=== PATIENT | female | born 1980 | race Caucasian/White ===

== ENCOUNTER 2024-08-18 15:22 | Outpatient (CLI) | payer OTHER, SELFPAY ==
--- NOTE | ~2024-08-18 | XR_ITS ---
Exam: Abdomen 2V HISTORY: diarrhea x 6 months COMPARISON: None. TECHNIQUE: Upright images of the abdomen FINDINGS: Air-fluid levels within the colon, to the right of midline. Intrauterine device is noted. The pelvis is not fully visualized to determine the presence or absence of air within the rectum. IMPRESSION: Air-fluid levels within the colon, a nonspecific but abnormal finding. Cross-sectional imaging (contr ast enhanced CT examination of the abdomen and pelvis) is recommended for further evaluation, along w ith direct visualization. Reviewed, dictated and finalized at location A. VAULT SUPERVISOR IMPRESSION: Air-fluid levels within the colon, a nonspecific but abnormal finding. Cross-se ctional imaging (contrast enhanced CT examination of the abdomen and pelvis) is recommended for further evaluation, along with direct visualization.
--- OUTSIDE RECORDS SUMMARY | 2024-08-20 02:54 | XMS_ITS | Referral Summary ---
Author Organization [facility] Building A Address [address] [place] [address] Care Team Providers Care Radio Talk Show Host Name Role Phone Unknown, Notinfile Primary Care Provider Unavail able Encounters Date Type Department Care Team Description 08/10/2024 1:45 PM WILDLAND FIRE FIGHTER Ancillary Procedure [facility] Imaging at [address] [id number] Acute bronchitis, unspecified organism 07/31/2024 2:15 PM WILDLAND FIRE FIGHTER Office Visit [facility] at [address] [address] Jacquie Blanco, DAVID Acute bronchitis, unspecified organism (Primary Dx) from Last 3 Months Allergies Active Allergy Reactions Criticality Noted Date Comments Adhesive Rash Medium 08/03/2019 Medications levonorgestreL (Mirena) IUD Mirena 20 mcg/24 hours (6 yrs) 52 mg intrauterine device Take by intrauterine route. Active promethazine-DM (PROMETHAZINE-DM) 1.25-3 mg/mL syrup TAKE 5 ML BY MOUTH EVERY 4 HOURS FOR 10 DAYS NEEDED Active ondansetron ODT (ZOFRAN-ODT) 4 mg disintegrating tabletIndications :Nausea Take 1 tablet (4 mg total) by mouth every 6 (six) hours as needed for nausea or vomiting 10 tablet 024 Active methylPREDNISolon e (Medrol, Omid,) 4 mg Dosepack follow package directions 21 tablet 022 2024 Discontinued azithromycin (ZITHROMAX) 250 mg tabletIndications :Acute bronchitis, unspecified organism Take 2 tabs (500 mg) by mouth today, than 1 tab (250 mg) daily for 4 days. 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 Hepatic lesion 06/29/2019 Assessment & Plan (06/29/2019 3:28 PM WILDLAND FIRE FIGHTER): Incidental hepatic lesion noted on CT above measuring 11 x 5mm. Asymptomatic with recent CMP on 06/10/19 reviewed indicating nearly normal liver functions having a slightly elevated ALT at 41. Awaiting for upcoming consultation with General surgery in 2 weeks for further evaluation. 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 Further direction pending follow-up with specialist. Dyspnea and respiratory abnormalities 06/16/2019 Assessment & Plan (06/16/2019 12:01 PM WILDLAND FIRE FIGHTER): Please refer to care plan details listed under fevers under origin. CXR for further evaluation, throughout pneumonia for further need for changes in management. Augmentin prescribed for broad-spectrum coverage, will consider adding on Z-Omid with presence of pneumonia or lack of improvement sx and 48 hours. RTC 1 week and in the interim regarding results of testing. Resolved Problems Problem Noted Date Diagnosed Date Resolved Date Hepatic adenoma 06/29/2019 06/29/2019 Upper respiratory tract infection 06/16/2019 06/16/2019 Fever of unknown origin 06/16/201909/2018 Assessment & Plan (06/16/2019 12:00 PM WILDLAND FIRE FIGHTER): Rapid strep negative, urine dip unremarkable aside from presence of hematuria (currently on mense). CBC, ESR, CRP, CXR for further evaluation. Likely bronchitis vs pneumonia given acute onset of sx. Initiating Augmentin therapy for broad- spectrum coverage, rotation of antipyretics and this. RTC in 1 week and certainly further follow-up pending results of CXR and labs over the next 1-2 days. S/Es of medication discussed, red flags reviewed indicating need to present back in clinic sooner. Flu-like symptoms 06/11/2019 06/16/2019 Assessment & Plan (06/11/2019 10:46 AM WILDLAND FIRE FIGHTER): Rapid flu negative. Given her recent travel to the [facility] possible norovirus that she caught from . Nonspecific complaints, flu-like sx in office would indicate presence of a likely virus. I did encourage Pt to Cnt. To push fluids, protein antipyretics, and call Friday regarding status. Will consider further need for treatment or testing with persistent sx. Posterior cervical lymphadenopathy 05/11/2019 06/09/2019 Assessment & Plan (06/09/2019 8:41 AM WILDLAND FIRE FIGHTER): Much improved w/10 day course of antibiotics. Risk vs benefit of move for with CT scan for further evaluation was discussed Pt and deferred at this time given improvement sx. CBC was also reviewed and WNL as well. Red flags reviewed indicating need to present back into clinic regarding lymphadenopathy any concerning accompanied sx. Assessment & Plan (05/11/2019 10:30 AM CDT): Possibly D/T allergies VS eustachian tube dysfunction, but given chronicity of condition in recommending a 10 day course of antibiotics to treat stay bacterial lymphadenopathy. Also recommending improved treatment for eustachian tube dysfunction with daily antihistamine, Flonase. S/Es of antibiotic discussed and use of probiotics were encouraged. RTC in 2-3 weeks for re-evaluation. Acute dysfunction of right eustachian tube 05/11/2019 05/11/2019 Assessment & Plan (05/11/2019 10:29 AM CDT): Recommending daily antihistamine, Flonase, 3-5 days OTC Sudafed. Also treating for suspected lymphadenopathy D/T secondary bacterial infection. Other fatigue 05/11/2019 06/09/2019 Assessment & Plan (06/09/2019 8:42 AM WILDLAND FIRE FIGHTER): Labs WNL detailed above. No current exercise regimen with poor diet over recent months which could be contributing to her fatigue created strongly encourage her to machine pecan picker an exercise regimen, endorsed healthier lifestyle and changes to further treat Cnt.. Certainly can look into premenopausal causes with persistence. Assessment & Plan (05/11/2019 10:29 AM CDT): Likely multifactorial due the changes in lifestyle habits. She was advised to developed a mild to moderate daily exercise regimen, healthier food choices also help with daily energy. TSH, BMP, CBC ordered for further evaluation as well. Motion sickness 05/11/2019 05/11/2019 Assessment & Plan (05/11/2019 10:30 AM CDT): Recommending scopolamine patch. S/Es of patch and administration thoroughly discussed in office. Immunizations Name Administration Dates Next Due Influenza, Quadrivalent, Ines l Culture-based MDCK, Antibiotic Free, Intramuscular 04/29/2019,04/29/2019 Influenza, Quadrivalent, Spl it, Preservative Free, Intramuscular 04/28/2018 Influenza, Trivalent, IM (MDV) 05/03/2017,2014 Influenza, Trivalent, Preser vative Free, Intramuscular 05/02/2015,05/13/2014 Influenza, Unspecified 08/10/2021(Deferr ed: Patient Refused),04/27/2021(Deferred: Patient Refused),09/20/2020(Deferred: Patient Refused) Moderna SARS-CoV-2 Monovalen t Vaccination (12+ YRS) 10/17/2020 Social History Tobacco Use Types Packs/Day Years Used Date Smoking Tobacco: Former Smokeless Tobacco: Never Tobacco Cessation:Counseling Given: Not Answered Alcohol Use Standard Drinks/Week Comments Yes 0 (1 standard drink = 0.6 oz pur e alcohol) PHQ-2 Answer Date Recorded PHQ-2 Total Score (If total score is 3 or more points, staff should administer the PHQ-9) 0 08/10/2021 Comments No Sex and Gender Information Value Date Recorded Sex Assigned at Not on file Legal Sex Female 12:21 PM WILDLAND FIRE FIGHTER Gender Identity Not on file Sexual Orientation Not on file Last Filed Vital Signs Vital Sign Reading Time Taken Comments Blood Pressure 101/55 07/31/2024 2:05 PM WILDLAND FIRE FIGHTER Pulse 84 07/31/2024 2:05 PM WILDLAND FIRE FIGHTER Temperature 36.9 ??C (98.4 ??F) 07/31/2024 2:05 PM CS T Respiratory Rate 20 07/31/2024 2:05 PM WILDLAND FIRE FIGHTER Oxygen Saturation 97% 07/31/2024 2:05 PM WILDLAND FIRE FIGHTER Inhaled Oxygen Concentration - - Weight 87 kg (191 lb 12.8 oz) 07/31/2024 2:05 PM WILDLAND FIRE FIGHTER Height 160 cm (5' 3 ) 07/31/2024 2:05 PM WILDLAND FIRE FIGHTER Body Mass Index 33.98 07/31/2024 2:05 PM WILDLAND FIRE FIGHTER Plan of Treatment Not on file Procedures Procedure Name Priority Date/Time Associated Diagnosis Comments XR CHEST PA LATERAL 2 VIEWS Schedule CORTEZ, Read CORTEZ (Appt Today, Awaiting Results) 08/10/2024 1:43 PM WILDLAND FIRE FIGHTER Acute bronchitis, unspecified organism from Last 3 Months Results * XR Chest Pa Lateral 2 Views (08/10/2024 1:43 PM WILDLAND FIRE FIGHTER) Anatomical Region Laterality Modality Body, Chest N/A Digital Radiogra phy 08/10/2024 2:18 PM WILDLAND FIRE FIGHTER Narrative 08/10/2024 2:19 PM WILDLAND FIRE FIGHTER EXAM DESCRIPTION: XR CHEST PA LATERAL 2 VIEWS REASON FOR STUDY: cough ?? Pt complains of cough x 6 weeks. No chest surgery. No asthma,copd,heart disease,cancer. Former smoker socially as a teenager. ? TECHNIQUE: There are 2 ??radiographic view(s) of the chest. COMPARISON: Prior exam 08/18/2019 FINDINGS: LUNGS: ??Pulmonary vascularity appears normal. ??No confluent infiltrate or effusion. ??Costophrenic angles are sharp. ?? HEART/MEDIASTINUM: ??Cardiac silhouette normal in size. Mediastinal and hilar contours appear normal. LINES/TUBES: ??None. BONES: ??Mild spondylosis thoracic spine. IMPRESSION: No acute cardiopulmonary abnormality. THIS IS AN ELECTRONICALLY VERIFIED FINAL REPORT 08/10/2024 2:19 PM - Electronically signed by ??Lucien BANKS D: ??08/10/2024 2:19 PM T: Report ID: [id number] Reading Location: ??[id number] Procedure Note Lucien Alonzo MD - 08/10/2024 EXAM DESCRIPTION: XR CHEST PA LATERAL 2 VIEWS REASON FOR STUDY: cough Pt complains of cough x 6 weeks. No chest surgery. No asthma,copd,heart disease,cancer. Former smoker socially as a teenager. TECHNIQUE: There are 2 radiographic view(s) of the chest. COMPARISON: Prior exam 08/18/2019 FINDINGS: LUNGS: Pulmonary vascularity appears normal. No confluent infiltrate or effusion. Costophrenic angles are sharp. HEART/MEDIASTINUM: Cardiac silhouette normal in size. Mediastinal andhilar contours appear normal. LINES/TUBES: None. BONES: Mild spondylosis thoracic spine. IMPRESSION: No acute cardiopulmonary abnormality. THIS IS AN ELECTRONICALLY VERIFIED FINAL REPORT 08/10/2024 2:19 PM - Electronically signed by Lucien BANKS T: Report ID: [id number] Reading Location: [id number] Jacquie Blanco NP IMG XR PROCEDURES Final Re sult from Last 3 Months Insurance [facility] CHOICE PLUS CHOICE PLUS [place] [id number] Care Teams Radio Talk Show Host Relationship Specialty Start Date End Date Unknown, Notinfile PCP - General 07/31/24
--- OUTSIDE RECORDS SUMMARY | 2024-08-20 02:54 | XMS_ITS | Clinical Summary ---
Author Organization [facility] Office Building A Address [address] [place] [address] Care Team Providers Care Scale Tank Operator Name Role Phone Unknown, Notinfile Primary Care Provider Unavail able Allergies Active Allergy Reactions Criticality Noted Date [...] 08/03/19 Assessment & Plan (08/03/2019 10:41 AM SAUSAGE GRINDER): Will order [address], if imaging is still uncertain, will send to GI for further work up. Hepatic lesion 06/29/2019 Assessment & Plan (06/29/2019 3:28 PM SAUSAGE GRINDER): Incidental hepatic lesion noted on CT above [...] 06/16/2019 Assessment & Plan (06/16/2019 12:01 PM SAUSAGE GRINDER): Please refer to care plan details listed [...] 06/16/201909/2018 Assessment & Plan (06/16/2019 12:00 PM SAUSAGE GRINDER): Rapid strep negative, urine dip unremarkable aside [...] 06/16/2019 Assessment & Plan (06/11/2019 10:46 AM SAUSAGE GRINDER): Rapid flu negative. Given her recent travel to the [place] possible norovirus that she caught from . Nonspecific complaints, flu-like sx in office would indicate presence of a likely virus. I did encourage Pt to Cnt. To push fluids, protein antipyretics, and call Friday regarding status. Will consider further need for treatment or testing with persistent sx. Posterior cervical lymphadenopathy 05/11/2019 06/09/2019 Assessment & Plan (06/09/2019 8:41 AM SAUSAGE GRINDER): Much improved w/10 day course of antibiotics. [...] 06/09/2019 Assessment & Plan (06/09/2019 8:42 AM SAUSAGE GRINDER): Labs WNL detailed above. No current exercise regimen with poor diet over recent months which could be contributing to her fatigue created strongly encourage her to chicken picker an exercise regimen, endorsed healthier lifestyle [...] patch and administration thoroughly discussed in office. Encounters Date Type Department Care Team Description 08/10/2024 1:45 PM SAUSAGE GRINDER Ancillary Procedure [facility] Imaging at [address] [id number] Acute bronchitis, unspecified organism 07/31/2024 2:15 PM SAUSAGE GRINDER Office Visit [facility] at [address] [address] Jacquie Blanco, STAIN APPLICATOR Acute bronchitis, unspecified organism (Primary Dx) from Last 3 Months Immunizations Name Administration Dates Next Due Influenza, Quadrivalent, Ines l Culture-based MDCK, Antibiotic Free, Intramuscular 04/29/2019,04/29/2019 Influenza, Quadrivalent, Spl it, Preservative Free, Intramuscular 04/28/2018 Influenza, Trivalent, IM (MDV) 05/03/2017,2014 Influenza, Trivalent, Preser vative Free, Intramuscular 05/02/2015,05/13/2014 Influenza, Unspecified 08/10/2021(Deferr ed: Patient Refused),04/27/2021(Deferred: Patient Refused),09/20/2020(Deferred: Patient Refused) Moderna SARS-CoV-2 Monovalen t Vaccination (12+ YRS) 10/17/2020 Surgical History Surgery Date Site/Laterality Comments SECTION section Medical History Medical History Date Comments Hx Other Medical 01-LIVESTOCK SPECULATOR Family History Medical History Relation Name Comments Diabetes Father Diabetes mellit us; Diabetes Mother Diabetes mellit us; Relation Name Status Comments Father Mother Social History Tobacco Use Types Packs/Day Years [...] on file Legal Sex Female 12:21 PM SAUSAGE GRINDER Gender Identity Not on file Sexual Orientation Not on file Obstetrics History Last Filed Vital Signs Vital Sign Reading Time Taken Comments Blood Pressure 101/55 07/31/2024 2:05 PM SAUSAGE GRINDER Pulse 84 07/31/2024 2:05 PM SAUSAGE GRINDER Temperature 36.9 ??C (98.4 ??F) 07/31/2024 2:05 PM CS T Respiratory Rate 20 07/31/2024 2:05 PM SAUSAGE GRINDER Oxygen Saturation 97% 07/31/2024 2:05 PM SAUSAGE GRINDER Inhaled Oxygen Concentration - - Weight 87 kg (191 lb 12.8 oz) 07/31/2024 2:05 PM SAUSAGE GRINDER Height 160 cm (5' 3 ) 07/31/2024 2:05 PM SAUSAGE GRINDER Body Mass Index 33.98 07/31/2024 2:05 PM SAUSAGE GRINDER Plan of Treatment Health Maintenance Due Date Last Done Comments Breast Cancer Screening-Mammogram 1982 Cervical Cancer Screening 1982 Hepatitis C Screening 1982 Pneumococcal vaccine <65 (1 of 2 - PCV) 1988 DTaP/Tdap/Td Vaccine (1 - Tdap) 1993 Varicella Vaccines (1 of 2 - 13+ 2-dose series) 1995 Hepatitis B Screening 2000 Regular Well Visit/Exam 18-64 2000 Depression Screening 08/10/2022 08/10/2021, 09/20/2020, 06/29/2019, Additional history exists Covid-19 Vaccine (2023- season) 2024 11/16/2020, 10/17/2020 Influenza Vaccine (#1) 2024 9, 04/29/2019, 04/28/2018, Additional history exists HPV Vaccines Aged Out No longer eligi ble based on patient's age to complete this topic Procedures Procedure Name Priority Date/Time Associated Diagnosis Comments XR CHEST PA LATERAL 2 VIEWS Schedule CORTEZ, Read CORTEZ (Appt Today, Awaiting Results) 08/10/2024 1:43 PM SAUSAGE GRINDER Acute bronchitis, unspecified organism from Last 3 Months Results * XR Chest Pa Lateral 2 Views (08/10/2024 1:43 PM SAUSAGE GRINDER) Anatomical Region Laterality Modality Body, Chest N/A Digital Radiogra phy 08/10/2024 2:18 PM SAUSAGE GRINDER Narrative 08/10/2024 2:19 PM SAUSAGE GRINDER EXAM DESCRIPTION: XR CHEST PA LATERAL 2 [...] D: ??08/10/2024 2:19 PM T: Report ID: [id number] Reading Location: ??[id number] Procedure Note Lucien Alonzo MD - 08/10/2024 [...] 2:19 PM - Electronically signed by Lucien Alonzo M.D. MJ T: Report ID: [id number] Reading Location: [place] [id number] Jacquie Blanco NP IMG XR PROCEDURES Final Re sult from Last 3 Months Insurance CHOICE PLUS Care Teams Scale Tank Operator Relationship Specialty Start Date End Date Unknown, Notinfile PCP - General 07/31/24
== END 2024-08-18 15:23 | disposition home or self-care (01) ==
LOC: ANHBWCIMG 15:24
PROVIDERS: PCP Nurse Practitioner Adult Health; Visit Provider Nurse Practitioner Adult Health
DX: K52.9 Noninfective gastroenteritis and colitis, unspecified (principal)
CPT/HCPCS: 74018

== ENCOUNTER 2024-09-13 09:17 | Outpatient (CLI) | payer OTHER, SELFPAY ==
--- OUTSIDE RECORDS SUMMARY | 2024-09-13 12:00 | XMS_ITS | Data Portability ---
Author Organization [facility] [email or web address] [facility], Main Office Address [address] [place] [address] Assessment No assessment recorded. Plan of Treatment Reminders Order Date Submit Date Provider Last Modified By Organization Details Last Modified Time Details Appointments None recorded. Lab rapid strep group A, throat 2023 024 [facility] [address], [place], [address], 4 15:16:45 streptococc us group A, culture, throat 2023 024 [email or web address] 2 [facility] [place] (Lab), [address] [place], [address], 4 08:06:34 Referral None recorded. Procedures None recorded. Surgeries None recorded. Imaging None recorded. Medication Orders azithromyci n 500 mg tablet 2023 024 [facility]/Pharm[facility] #[id number], [address] [place], [address], 4 12:38:05 ciprofloxac in 500 mg tablet 2023 024 [id number], [address], [place], [id number], 4 12:10:22 promethazin e-DM 6.25 mg-15 mg/5 mL oral syrup 2023 024 [id number], [address] , [place], [place], [id number], 4 12:10:26 Patient TargetsNo targets recorded. Patient Instructions Encounter Date Encounter Id Patient Instructions Last Modified By Organization Details Last Modified Time 03/24/2024 [id number] take imodium aafter every loose claire , if not better, get in to ED., avoid dairy , cheese . [email or web address] Not available 03/29/2024 15:33:56 Reason for Referral None Reported. Results Created Date Observation Date Name Description Value Unit Range Abnormal Flag Note LastModifiedBy Organization Detail LastModifiedTime 08/04/19 24 08/04/2023 rapid strep group A, throa t STREP A negati ve Not Available [address], [place], [address], 08/04/2023 13:28:20 Result Notes None recorded. Problems Name Problem SNOMED Code Status Onset Date Resolution Date Notes Provider Name and Address Organization Details Recorded Time Menorrhagi a 329056050 Active Not Available [facility] 3 05:55:59 Pain of breast 43076173 Completed Not Available [facility] 3 05:55:59 Solar erythema 137542945 Active 2022 Cal Acevedo MD [address], [employer], [place], [address] , [employer] 3 11:31:20 Sinusitis 16720468 Active 2022 JAGRUTI Smith [address], [place], [address] , [employer] 3 10:28:10 Traveler's diarrhea 76981811 Active 2023 JAGRUTI Smith [address] [employer], [place], [address] , [employer] 4 12:37:22 Problem Notes None recorded. Procedures Surgical History Date Name Laterality Status Provider Name and Address Organization Details Recorded Time loop electrosurgical excision procedure of cervix completed Not Available [facility] 09/25/2022 05:52:24 section completed Not Available [facility] 09/25/2022 05:52:24 Imaging Results None recorded. Procedure Notes None recorded. Medical Equipment None Reported. Allergies No known drug allergies Medications Name Sig Start Date Stop Date Status Note LastModified by Organization Details LastModified Time amoxicillin 500 mg capsule 03/11 completed Not Available Not Available Not Available Mirena 21 mcg/24 hr (up to 8 years) 52 mg intrauterin e device Take by intrauter ine route. 2019 active Not Available Not Available Not Avai lable promethazin e-DM 6.25 mg-15 mg/5 mL oral syrup TAKE 5 ML BY MOUTH EVERY 4 HOURS FOR 10 DAYS NEEDED 03/24 completed Not Available Not Available Not Available azithromyci n 250 mg tablet active Not Available Not Available Not Available phentermine 37.5 mg tablet Take 1 tablet every day by oral route. 08/04 completed Not Available Not Available Not Available ciprofloxac in 500 mg tablet TAKE 1 TABLET BY MOUTH EVERY 12 HOURS FOR 10 DAYS 03/24 completed Not Available Not Available Not Available hydrocortis one 2.5 % topical cream with perineal applicator APPLY A THIN LAYER TO THE AFFECTED AREA(S) BY TOPICAL ROUTE 2-4 TIMESDAIL Y for 7-10 days as needed 07/01 completed Not Available Not Available Not Available ciprofloxac in 0.3 % eye drops INSTILL TWO GTS IN AFFECTED EYES QID active Not Available Not Available No t Available cephalexin 500 mg capsule 05/14 completed Not Available Not Available Not Available oseltamivir 75 mg capsule 03/11 completed Not Available Not Available Not Available tobramycin 0.3 % eye drops active Not Available Not Available Not Available cefuroxime axetil 500 mg tablet 07/27 completed Not Available Not Available Not Available scopolamine 1 mg over 3 days transdermal patch 07/27 completed Not Available Not Available Not Available methylpredn isolone 4 mg tablets in a dose pack FOLLOW PACKAGE DIRECTION S 08/04 completed Not Available Not Available Not Available Necon 0.5/35 (28) 0.5 mg-35 mcg tablet Take 1 tablet every day by oral route. 05/14 completed Not Available Not Available Not Available fluticasone propionate 50 mcg/actuati on nasal spray,suspe nsion 07/01 completed Not Available Not Available Not Available amoxicillin 875 mg-potassiu m clavulanate 125 mg tablet 07/27 completed Not Available Not Available Not Available Ventolin HFA 90 mcg/actuati on aerosol inhaler 07/01 completed Not Available Not Available Not Available azithromyci n 500 mg tablet TAKE 1 TABLET BY MOUTH EVERY DAY FOR 5 DAYS active Not Available Not Available No t Available Nortrel (28) 0.5 mg/0.75 mg/1 mg-35 mcg tablet TAKE 1 TABLET BY MOUTH EVERY DAY 07/27 completed Not Available Not Available Not Available Se- 19 (with docusate) 29 mg iron-1 mg-25 mg tablet Take 1 tablet every day by oral route. active Not Available Not Available No t Available Estarylla 0.25 mg-35 mcg tablet Take 3 pills daily for 3 days, then 2 pills daily for 2 days, then 1 pill thereafte r to complete 2 packs (skip the placebo pills) 08/09 completed Not Available Not Available Not Available Virtussin AC 10 mg-100 mg/5 mL oral liquid 03/11 completed Not Available Not Available Not Available Fluvirin 9650-7281(P F) 45 mcg (15 mcg x3)/0.5 mL intramuscul ar syringe INJECT 0.5 ML INTRAMUSC ULARLY DIRECTED. active Not Available Not Available No t Available Fluvirin 1438-5106 (PF) 45 mcg (15 mcg x 3)/0.5 mL IM syringe ADM 0.5ML IM UTD 07/27 completed Not Available Not Available Not Available Fluvirin 6528-7275 45 mcg (15 mcg x 3)/0.5 mL intramuscul ar suspension ADM 0.5ML IM UTD 07/27 completed Not Available Not Available Not Available Afluria Quad (PF) 60 mcg (15 mcg x 4)/0.5 mL IM syringe ADM 0.5ML IM UTD 07/27 completed Not Available Not Available Not Available Flucelvax Quad 60 mcg (15 mcg x 4)/0.5 mL intramuscul ar susp ADM 0.5ML IM UTD active Not Available Not Available No t Available Vitals Date Recorded Body mass index (BMI) Body mass index (BMI) Body height Body height Oxygen saturation Oxygen saturation in Arterial blood by Pulse oximetry Oxygen saturation Oxygen saturation in Arterial blood by Pulse oximetry Heart rate Heart rate Body temperature Body temperature Body weight Body weight Systolic blood pressure Diastolic blood pressure Systolic blood pressure Diastolic blood pressure Provider Name and Address Organization Details Last Updated DateTime 3 30.6 kg/m2 29.8 kg/m2 165.1 cm 165.1 cm 98 % 98 % 97 % 97 % 68 /min 90 /min 98.1 [degF] 97.2 [degF] 89010 g 03970.0 3 g 104 mm[Hg] 68 mm[Hg] 122 mm[Hg] 78 mm[Hg] Not Available [facility] 3 05:54:29 Date Recorded Body weight Body temperature Heart rate Oxygen saturation Oxygen saturation in Arterial blood by Pulse oximetry Systolic blood pressure Diastolic blood pressure Provider Name and Address Organization Details Last Updated DateTime 4 26341.0 7 g 98.1 [degF] 105 /min 95 % 95 % 122 mm[Hg] 86 mm[Hg] Emily Morales MA [employer] 4 12:47:16 Date Recorded Body weight Body mass index (BMI) Body height Body temperature Respiratory rate Heart rate Oxygen saturation Oxygen saturation in Arterial blood by Pulse oximetry Systolic blood pressure Diastolic blood pressure Provider Name and Address Organization Details Last Updated DateTime 4 95255.9 2 g 33.3 kg/m2 162.56 cm 98.3 [degF] 16 /min 60 /min 95 % 95 % 120 mm[Hg] 80 mm[Hg] Krupa Varghese RN [facility] [employer] 4 12:12:37 Social History Question Answer Notes LastModified by Organizat ion Details LastModified Time Tobacco Smoking Status Former Smoker 1ppw Not Available [facility] 09/25/2022 05:52:12 How Many Years Have You Smoked Tobacco? 2 [id number] Information not available 09/25/2022 Sex: Unknown Functional Status None recorded. Mental Status None recorded. Family History Relationship Description Onset Age of this Age Resolved Age Notes LastModified by Organization Details LastModified Time Father Lane tanner [email or web address] [id number] Not available 09/25/2022 05:52:25 Medical History Condition Response BLINDNESS N RHEUMATIC FEVER N KIDNEY STONES N BLADDER PROBLEMS N MRSA N OTHER # 1 N POLIO N LUNG DISEASE/DISORDER N HISTORY OF DRUG ABUSE N COPD N RADIATION / CHEMOTHERAPY N Other # 2 N BLOOD DISEASES N SURGERY N EAR OR HEARING PROBLEMS N MUMPS N SHINGLES N BOWEL PROBLEMS N FEMALE PROBLEMS / INFECTIONS N DEPRESSION (INCLUDING POST ) N STROKE/TIA N THYROID DISEASE N ULCERS N BENIGN PROSTATIC HYPERPLASIA N MEASLES N CERVICALGIA N TB SKIN TEST N HYPOTENSION N MYOCARDIAL INFARCTION N OBESITY N PARAPELGIA N GERD/NAUSEA N ANEURYSM N URINARY/BLADDER/KIDNEY PROBLEMS N CORONARY ARTERY DISEASE (CAD) N MENIERE'S DISEASE N ADDICTION CONCERNS N ENDOMETRIOSIS N USE OF BLOOD THINNERS N SKIN PROBLEMS N EMPHYSEMA N GASTROINTESTINAL DISORDER N MUSCLE,JOINT OR BONE PROBLEMS N GASTROINTESTINAL BLEEDING N BLOOD CLOTS N ASTHMA N CATARACTS N ERECTILE DYSFUNCTION N GI PROBLEMS N CHF N Low Testosterone N NEUROPATHY N INFERTILITY N AIDS/HIV N FRACTURES N CHEMOTHERAPY / RADIATION N VISION/EYE PROBLEMS N LIVER DISEASE N MALE HYPOGONADISM N HYPERTENSION N TOURETTE'S N ANXIETY DISORDER N BLOOD TRANSFUSION N ANEMIA/BLOOD DISORDER N CHRONIC EAR INFECTIONS N BRONCHITIS Y TUBERCULOSIS N GLAUCOMA N FOOT PROBLEM N DIVERTICULITIS N CHICKENPOX N SLEEP APNEA N ALLERGIES/HAYFEVER N INFECTIOUS DISEASE N HEART ARRHYTHMIA N PROSTATE N INSOMNIA N HIGH CHOLESTEROL / HYPERLIPIDEMIA N HYPERTHYROIDISM N EYE PROBLEMS N EATING DISORDER N EDEMA N CHRONIC PAIN SYNDROME N CONSTIPATION N CAROTID BLOCKAGE N BACK / NECK PROBLEMS N HAVE YOU BEEN HOSPITALIZED OR SEEN IN [facility] IN THE PAST YEAR ? N ATHEROSCLEROSIS N BREAST PROBLEMS N DIALYSIS N ECZEMA N FIBROMYALGIA N OSTEOPOROSIS N ARTHRITIS N NO SIGNIFICANT PAST MEDICAL HISTORY N APPENDICITIS N DIABETES, TYPE N BAD TEETH N HEARTBURN / REFLUX N ADD/ADHD N AUTISM SPECTRUM DISORDER (ASD) N HEPATITIS / LIVER DISEASE N PULMONARY DISEASE N GOUT N SLEEP DISORDER N ALZHEIMER'S DISEASE N PAIN N HERPES N DEMENTIA N HEADACHES/MIGRAINES N SEIZURES/EPILEPSY N VASCULAR DISEASE N PACEMAKER N DIZZINESS N HEART DISEASE/HEART PROBLEMS N KIDNEY DISEASE N DEVELOPMENTAL OR BEHAVIORAL DISORDERS N MULTIPLE SCLEROSIS N SCARLET FEVER N MENTAL DISORDER/ILLNESS N CARDIAC ARRHYTHMIA N CANCER: SPECIFY N PNEUMONIA N ATRIAL FIBRILLATION N Gall Stones N PULMONARY EMBOLISM N AUTOIMMUNE DISEASE N Gynecological History Statement/Question Response Abnormal Pap N Flow Moderate Date of LMP 06/25/2022 STIs/STDs N Date of Last Pap 01/25/2022 Duration of Flow (days) 4 Age at Menarche 15 How many live births 3 Frequency of Cycle (Q days) 30 Sexually Active? Y Menses Monthly Y Obstetrics History GPAL:G 3 P 3 0 0 3 Type Value Full Term 3 Living 3 Total 3 Past Encounters Encounter ID Performer Location Encounter Start Date Encounter Closed Date Diagnosis/Indication Diagnosis SNOMED-CT Code Diagnosis ICD10 Code Diagnosis Note [id number] [facility] [place] [address] [place] [address] [place] [address] 07/01/2022 00:00:00 07/01/2022 21:11:43 [id number] [facility] [place] [address] [place] [address] [place] [address] 07/30/2022 00:00:00 07/30/2022 19:51:55 [id number] JAGRUTI Smith [facility] [place] [address] [place] [address] [place] [address] 08/04/2023 12:35:44 08/04/2023 13:56:37 Sinusitis 89511149 J32.9 [id number] JAGRUTI Smith [facility] [place] [facility] [address] [place] [address] [place] [address] 03/24/2024 12:01:59 03/24/2024 12:45:52 Traveler's diarrhea [id number] A04.1 Health Concerns Section Related Observation LastModified by Organization Detai ls LastModified Time None Recorded Concern Status LastModified by Organization Details LastModified Time None Recorded Advance Directives Directive None Recorded Payers Encounter Date Sequence Insurance Name Policy Number Policy Diego Covered Member ID Diego Member ID Guarantor Name 08/04/2023 1 [facility] [id number] Carol A [place] [id number] Carol Lombardi [place] 03/24/2024 1 [facility] [id number] Carol A Adonis [id number] Carol Lombardi [place] Notes Date Note Type Note Provider Name and Address Organization Details Recorded Time 08/04/2023 text/html sinus pressure , drainage , no fever, sore throat though JAGRUTI Smith [address], [place], [address], [facility] [employer] [facility] [employer] [facility] 08/09/2023 08:33:49 03/24/2024 text/html loose stools , urgency , same , no fevers JAGRUTI Smith [address], [place], [address], [email or web address] [facility] [employer] [facility] 03/29/2024 15:36:25 OBGyn Episode No OBEpisode recorded.
--- OUTSIDE RECORDS SUMMARY | 2024-09-13 12:00 | XMS_ITS | Clinical Summary ---
Author Organization [facility] Medical Office Building A Address [address] [place] [address] Care Team Providers Care Diving Board Assembler Name Role Phone Unknown, Notinfile Primary Care [...] Active ondansetron ODT (ZOFRAN-ODT) 4 mg disintegrating tabletIndications: Nausea Take 1 tablet (4 mg total) by mouth every 6 (six) hours as needed for nausea or vomiting 10 tablet 02/11/20 24 Active Active Problems Problem Noted Date Diagnosed Date Menorrhagia 02/11/2024 Pain of breast 02/11/2024 Sinusitis 07/01/2023 Sunburn 02/26/2023 Neoplasm of uncertain behavior of liver 08/03/19 20 Assessment & Plan (08/03/2019 10:41 AM PIPE STEM SAWYER): Will order [address], if imaging is still uncertain, will send to GI for further work up. Hepatic lesion 06/29/2019 Assessment & Plan (06/29/2019 3:28 PM PIPE STEM SAWYER): Incidental hepatic lesion noted on CT above [...] 06/16/2019 Assessment & Plan (06/16/2019 12:01 PM PIPE STEM SAWYER): Please refer to care plan details listed [...] infection 06/16/2019 06/16/2019 Fever of unknown origin 06/16/2019 12/0 09/2018 Assessment & Plan (06/16/2019 12:00 PM PIPE STEM SAWYER): Rapid strep negative, urine dip unremarkable aside [...] 06/16/2019 Assessment & Plan (06/11/2019 10:46 AM PIPE STEM SAWYER): Rapid flu negative. Given her recent travel to the [facility] possible norovirus that she caught from . Nonspecific complaints, flu-like sx in office would indicate presence of a likely virus. I did encourage Pt to Cnt. To push fluids, protein antipyretics, and call Friday regarding status. Will consider further need for treatment or testing with persistent sx. Posterior cervical lymphadenopathy 05/11/2019 06/09/2019 Assessment & Plan (06/09/2019 8:41 AM PIPE STEM SAWYER): Much improved w/10 day course of antibiotics. [...] 06/09/2019 Assessment & Plan (06/09/2019 8:42 AM PIPE STEM SAWYER): Labs WNL detailed above. 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, endorsed healthier lifestyle [...] Department Care Team Description 08/10/2024 1:45 PM PIPE STEM SAWYER Ancillary Procedure [facility] Imaging at [address] [address] Acute bronchitis, unspecified organism 07/31/2024 2:15 PM PIPE STEM SAWYER Office Visit [facility] Convenient Care at [address] [address] Jacquie Blanco, CUSTOMER SUPPORT AGENT Acute bronchitis, unspecified organism (Primary Dx) from Last 3 Months Immunizations Immunization Administration Dates Next Due Influenza, Quadrivalent, Ines [...] Medical History Date Comments Hx 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 Family History Medical History Relation Name Comments [...] on file Legal Sex Female 12:21 PM PIPE STEM SAWYER Gender Identity Not on file Sexual Orientation Not on file Obstetrics History Last Filed Vital Signs Vital Sign Reading Time Taken Comments Blood Pressure 101/55 07/31/2024 2:05 PM PIPE STEM SAWYER Pulse 84 07/31/2024 2:05 PM PIPE STEM SAWYER Temperature 36.9 C (98.4 F) 07/31/2024 2:05 PM PIPE STEM SAWYER Respiratory Rate 20 07/31/2024 2:05 PM PIPE STEM SAWYER Oxygen Saturation 97% 07/31/2024 2:05 PM PIPE STEM SAWYER Inhaled Oxygen Concentration - - Weight 87 kg (191 lb 12.8 oz) 07/31/2024 2:05 PM PIPE STEM SAWYER Height 160 cm (5' 3 ) 07/31/2024 2:05 PM PIPE STEM SAWYER Body Mass Index 33.98 07/31/2024 2:05 PM PIPE STEM SAWYER Plan of Treatment Health Maintenance Due Date [...] 09/20/2020, 06/29/2019, Additional history exists Covid-19 Vaccine ( season) 2024 11/16/2020, 10/17/2020 Influenza Vaccine (#1) 2024 9, 04/29/2019, 04/28/2018, Additional history exists HPV Vaccines Aged Out No longer eligi ble based on patient's age to complete this topic Procedures Procedure Name Priority Date/Time Associated Diagnosis Comments XR CHEST PA LATERAL 2 VIEWS Schedule CORTEZ, Read CORTEZ (Appt Today, Awaiting Results) 08/10/2024 1:43 PM PIPE STEM SAWYER Acute bronchitis, unspecified organism from Last 3 Months Results * XR Chest Pa Lateral 2 Views (08/10/2024 1:43 PM PIPE STEM SAWYER) Anatomical Region Laterality Modality Body, Chest N/A Digital Radiogra phy 08/10/2024 2:18 PM PIPE STEM SAWYER Narrative 08/10/2024 2:19 PM PIPE STEM SAWYER EXAM DESCRIPTION: XR CHEST PA LATERAL 2 [...] HEART/MEDIASTINUM: Cardiac silhouette normal in size. Mediastinal and hilar contours appear normal. LINES/TUBES: None. BONES: Mild spondylosis thoracic spine. IMPRESSION: No acute cardiopulmonary abnormality. THIS IS AN ELECTRONICALLY VERIFIED FINAL REPORT 08/10/2024 2:19 PM - Electronically signed by Lucien BANKS T: Report ID: [id number] Reading Location: [id number] Procedure Note Lucien Alonzo MD - 08/10/2024 [...] signed by Lucien BANKS T: Report ID: [id number] Reading Location: [place] [address] Jacquie Blanco NP IMG XR PROCEDURES Final Re sult from Last 3 Months Insurance [facility] HMO/PPO Address: [address] [address] [facility] HMO/PPO Address: [address] [id number] [place] [address] Care Teams Diving Board Assembler Relationship Specialty Start Date End Date Unknown, Notinfile PCP - General 07/31/24
--- OUTSIDE RECORDS SUMMARY | 2024-09-13 12:00 | XMS_ITS | Referral Summary ---
Author Organization [facility] Medical Office Building A Address [address] [place] [address] Care Team Providers Care Senior Vice President Name Role Phone Unknown, Notinfile Primary Care Provider Unavail able Encounters Date Type Department Care Team Description 08/10/2024 1:45 PM MUCK MINER Ancillary Procedure [facility] Imaging at [address] [address] Acute bronchitis, unspecified organism 07/31/2024 2:15 PM MUCK MINER Office Visit [facility] Convenient Care at [address] [address] Jacquie Blanco, DAVID Acute bronchitis, [...] 08/03/19 Assessment & Plan (08/03/2019 10:41 AM MUCK MINER): Will order [address], if imaging is still uncertain, will send to GI for further work up. Hepatic lesion 06/29/2019 Assessment & Plan (06/29/2019 3:28 PM MUCK MINER): Incidental hepatic lesion noted on CT above [...] 06/16/2019 Assessment & Plan (06/16/2019 12:01 PM MUCK MINER): Please refer to care plan details listed [...] 06/16/2019 06/16/2019 Fever of unknown origin 06/16/2019 1209/2018 Assessment & Plan (06/16/2019 12:00 PM MUCK MINER): Rapid strep negative, urine dip unremarkable aside [...] 06/16/2019 Assessment & Plan (06/11/2019 10:46 AM MUCK MINER): Rapid flu negative. Given her recent travel [...] 06/09/2019 Assessment & Plan (06/09/2019 8:41 AM MUCK MINER): Much improved w/10 day course of antibiotics. [...] 06/09/2019 Assessment & Plan (06/09/2019 8:42 AM MUCK MINER): Labs WNL detailed above. 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 Immunizations Immunization Administration Dates Next Due Influenza, [...] on file Legal Sex Female 12:21 PM MUCK MINER Gender Identity Not on file Sexual Orientation Not on file Last Filed Vital Signs Vital Sign Reading Time Taken Comments Blood Pressure 101/55 07/31/2024 2:05 PM MUCK MINER Pulse 84 07/31/2024 2:05 PM MUCK MINER Temperature 36.9 C (98.4 F) 07/31/2024 2:05 PM MUCK MINER Respiratory Rate 20 07/31/2024 2:05 PM MUCK MINER Oxygen Saturation 97% 07/31/2024 2:05 PM MUCK MINER Inhaled Oxygen Concentration - - Weight 87 kg (191 lb 12.8 oz) 07/31/2024 2:05 PM MUCK MINER Height 160 cm (5' 3 ) 07/31/2024 2:05 PM MUCK MINER Body Mass Index 33.98 07/31/2024 2:05 PM MUCK MINER Plan of Treatment Not on file Procedures Procedure Name Priority Date/Time Associated Diagnosis Comments XR CHEST PA LATERAL 2 VIEWS Schedule CORTEZ, Read CORTEZ (Appt Today, Awaiting Results) 08/10/2024 1:43 PM MUCK MINER Acute bronchitis, unspecified organism from Last 3 Months Results * XR Chest Pa Lateral 2 Views (08/10/2024 1:43 PM MUCK MINER) Anatomical Region Laterality Modality Body, Chest N/A Digital Radiogra phy 08/10/2024 2:18 PM MUCK MINER Narrative 08/10/2024 2:19 PM MUCK MINER EXAM DESCRIPTION: XR CHEST PA LATERAL 2 [...] Lucien Alonzo M.D. MJ T: Report ID: [id number] Reading Location: [id number] Procedure Note Lucien Alonzo MD - 08/10/2024 [...] signed by Lucien BANKS T: Report ID: [id number] Reading Location: [place] [address] Jacquie Blanco NP IMG XR PROCEDURES Final Re sult from Last 3 Months Insurance [facility] H[facility]/PPO Address: [facility] [address] [place] [address] [facility] H[facility] Address: [facility] [id number] [place], [place] [id number] Care Teams Senior Vice President Relationship Specialty Start Date End Date Unknown, Notinfile PCP - General 07/31/24
[2024-09-13 19:16] LABS: Alanine Aminotransferase 40 U/L (6-35); Albumin Level 4.2 g/dL (3.5-5.1); Alkaline Phosphatase 94 U/L (38-126); Anion Gap 12 mmol/L (4-12); Aspartate Amino Transferase 43 U/L (14-36); Basophils Percent Auto 0.3 % (0.2-1.2); Bilirubin,Total 0.5 mg/dL (0.2-1.3); Blood Urea Nitrogen 15 mg/dL (7-17); Calcium 8.7 mg/dL (8.4-10.2); Carbon Dioxide 22 mmol/L (22-30); Chloride 107 mmol/L (98-107); Cholesterol 128 mg/dL (0-200); Eosinophils Absolute Auto 0.1 K/mm3 (0-0.3); Estimated Glomerular Filt Rate > 60; Glucose 74 mg/dL (65-110); HDL Direct 26 mg/dL; Hematocrit 47.6 % (37.0-47.0); Hemoglobin 15.6 g/dL (12.0-15.0); Immature Granulocyte Absolute 0.22 K/mm3 (0.00-0.031); Immature Granulocyte Percent A 1.8 % (0-0.5); Lymphocytes Absolute Auto 4.12 K/mm3 (0.9-3.2); Mean Corpuscular HGB Conc 32.8 g/dl (32-36); Mean Corpuscular Hemoglobin 30.5 pg (26-34); Mean Corpuscular Volume 93.2 fl (80-100); Monocytes Absolute Auto 0.9 K/mm3 (0.1-0.6); Monocytes Percent Auto 7.3 % (2.6-8.5); Neutrophils Absolute Auto 7.1 K/mm3 (1.3-6.7); Neutrophils Percent Auto 56.6 % (45.5-73.1); Platelet Count Result 436 k/mm3 (150-375); Potassium 4.3 mmol/L (3.4-5.0); Red Blood Count 5.11 M/mm3 (4.2-5.4); Red Cell Distribution Width 12.3 % (11.5-14.5); Sodium 141 mmol/L (137-145); Triglycerides 172 mg/dL (<150); White Blood Count 12.5 K/mm3 (4.5-10.0)
[2024-09-13 19:33] LABS: LDL Cholesterol Direct 77 mg/dL
[2024-09-13 21:48] LABS: Free T4 Free Thyroxine 1.05 ng/dL (0.78-2.19)
== END 2024-09-13 09:18 | disposition home or self-care (01) ==
LOC: ANHBWCLAB 09:18
PROVIDERS: PCP Nurse Practitioner Adult Health; Visit Provider Nurse Practitioner Adult Health
DX: Z13.9 Encounter for screening, unspecified (principal); K52.9 Noninfective gastroenteritis and colitis, unspecified
CPT/HCPCS: 36415; 80053; 80061; 84439; 84443; 85025; 87045; 87427; 87449

== ENCOUNTER 2024-12-29 11:23 | Outpatient (CLI) | payer OTHER, SELFPAY ==
--- NOTE | ~2024-12-29 | MM_ITS ---
EXAMINATION: MM screening isai BI w aniya HISTORY: Screening TECHNIQUE: Craniocaudal and mediolateral oblique 3-D tomosynthesis images were obtained and synthetic 2-D images were generated. CAD analysis was submitted and interpreted. COMPARISON: 01/09/2023 BREAST PARENCHYMAL COMPOSITION: Not dense: There are scattered areas of fibroglandular density. FINDINGS: There is no evidence of suspicious mass, calcification, or architectural distortion to sug gest malignancy in either breast. There has been no suspicious interval change. IMPRESSION: 1. No mammographic evidence of malignancy. 2. Recommend routine screening mammography in one year. BI-RADS Category 1: Negative Reviewed, dictated and finalized at location B.
== END 2024-12-29 11:24 | disposition home or self-care (01) ==
LOC: MICIMG 11:24
PROVIDERS: PCP Nurse Practitioner Adult Health; Visit Provider Student in an Organized Health Care Education/Training Program
DX: Z12.31 Encounter for screening mammogram for malignant neoplasm of breast (principal)
CPT/HCPCS: 77063; 77067